=== PATIENT | male | born 2000 | race African-American/Black ===

== ENCOUNTER 2021-04-15 12:34 | Emergency (ER) | payer MEDICAID ==
[~2021-04-15] VITALS: Ht 175.3 cm; Wt 90.0 kg
[2021-04-15 12:39] VITALS: BP 150/87
[2021-04-15] MEDS ORDERED: TETANUS, DIPHTHERIA, PERTUSSIS VAC/PF 0.5ML (>10YR OLD) IM ONE (13:00)
[2021-04-15] MEDS ORDERED: LIDOCAINE HCL/PF 1% 10 MG/ML 5ML VIAL INFIL ONE (13:00)
[2021-04-15] MEDS ORDERED: ACETAMINOPHEN WITH CODEINE 300/30MG TABLET PO ONE (13:00)
[2021-04-15] MEDS ORDERED: BACITRACIN ZINC OINT UDPKT TOP ONE (13:00)
[2021-04-15] MEDS ORDERED: BO1 TP (15:32)
== END 2021-04-15 16:00 | disposition home or self-care (01) ==
LOC: ER 12:34
DX: S61.215A Laceration without foreign body of left ring finger without damage to nail, initial encounter (principal); X58.XXXA Exposure to other specified factors, initial encounter; Y93.89 Activity, other specified; Y92.89 Other specified places as the place of occurrence of the external cause; Y99.8 Other external cause status; J45.909 Unspecified asthma, uncomplicated
CPT/HCPCS: 99283; J3490